=== PATIENT | female | born 1945 | race Caucasian/White ===

== ENCOUNTER 2016-12-26 12:41 | Outpatient (CLI) | payer MEDICARE, OTHER ==
[2016-06-05 20:46] VITALS: BP 136/79
[2016-12-26 13:03] LABS: BASOPHILS % 0.3 (0.0-1.5); EOSINOPHILS % 2.9 % (0.0-6.8); LYMPHOCYTES # 2.3 # k/uL (0.6-4.0); MEAN CORPUSCULAR HEMOGLOBIN 29.8 pg (28.0-34.0); MONOCYTES # 0.3 # k/uL (0.0-0.9); MONOCYTES % 4.9 % (0.0-11.0); NEUTROPHILS # 3.5 # k/uL (1.4-7.7)
[2016-12-26 13:22] LABS: eGFR (African) > 60; eGFR (Non-African) > 60
== END 2016-12-26 12:42 ==
LOC: LAB 12:41
PROVIDERS: ATTEND Family Medicine
DX: R07.9 Chest pain, unspecified (principal); I25.10 Atherosclerotic heart disease of native coronary artery without angina pectoris
CPT/HCPCS: 36415; 80053; 84484; 85025

== ENCOUNTER 2018-02-10 11:33 | Emergency (ER) | payer MEDICARE, OTHER ==
--- NOTE | 2018-02-10 12:09 | ED Physician Documentation ---
General Adult - HISTORIAN Historian: patient - HPI Stated Complaint: Chest pain Chief Complaint: General Adult Additional Information: Heart fluttering for two days. No pain. Had MD in the past with no pain, so came to the ER for an EKG. Had stents in 2014; no anticoagulants. 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 No other associated signs; no modifying factors. - ROS CONST: no problems - PAST HX Past History: other (see above) Allergies/Adverse Reactions: Allergies Allergy/AdvReac Type Severity Reaction Status Date / Time aspirin Allergy Severe Anaphylaxis Verified 02/10/18 11:54 cefuroxime axetil Allergy Severe Anaphylaxis Verified 02/10/18 11:54 [From Ceftin] naproxen [From Naprosyn] Allergy Severe Anaphylaxis Verified 02/10/18 11:54 Penicillins Allergy Severe Anaphylaxis Verified 02/10/18 11:54 tolmetin sodium Allergy Severe Anaphylaxis Verified 02/10/18 11:54 [From Tolectin] Home Medications: Ambulatory Orders Medication Instructions Recorded NK [NK] 02/10/18 - SOCIAL HX Smoking History: non-smoker - FAMILY HX Family History: No - VITAL SIGNS Vital Signs: Vital Signs Temp Pulse Resp BP Pulse Ox 97.8 F 72 16 150/63 95 02/10/18 11:33 02/10/18 11:48 02/10/18 11:33 02/10/18 11:33 02/10/18 11:33 - REVIEWED ASSESSMENTS Nursing Assessment Reviewed: Yes Vitals Reviewed: Yes Progress - Progress Progress: Patient Study Name: AUBREY ZAMARRIPA Date: Feb 10, 2018 12:26:55 PM CDT Modality Type: DX Gender: F Description: CHEST : 43 Institution: [facility] Physician: KE CLANCY - ER Chest, AP portable History: Irregular heart rate Findings: No infiltrate, effusion or pneumothorax is present. Heart size, mediastinum and pulmonary vascularity are normal. Impression: No active pulmonary disease. Electronically signed on Feb 10, 2018 12:40:15 PM CDT by: Javy Carrasquillo All labs reassuring including serial Troponin I's. Pt w/o pain in the ER. Appt with Dr. Escobar in 2 months. ED Results Lab/Radiology - Orders Orders: ED Orders Category Date Time Status Continuous EKG monitoring Q1H Care 02/10/18 11:[address] IV Lock 1T Care 02/10/18 11:48 Active CHEST 1VIEW [RAD] Stat Exams 02/10/18 Ordered CBC/PLATELET/DIFF Routine Lab 02/10/18 11:58 Received CMP Routine Lab 02/10/18 11:58 Received TROPONIN I (cTnI) Stat Lab 02/10/18 11:58 Received URINALYSIS Routine Lab 02/10/18 11:58 Received Oxygen Daily Oxygen 02/10/18 12:00 Ordered General Adult Physical Exam - PHYSICAL EXAM GENERAL APPEARANCE: no distress EENT: eye inspection normal, ENT inspection normal, pharynx normal (Mallampati 2 ) NECK: normal inspection RESPIRATORY: breath sounds normal CVS: reg rate & rhythm, heart sounds normal, no murmur ABDOMEN: normal bowel sounds, no distension, non-tender BACK: normal inspection, no CVA tenderness SKIN: warm/dry, normal color EXTREMITIES: normal range of motion (gait and stance), no evidence of injury NEURO: CN's nml as tested, motor nml, sensation nml, cognition normal Discharge Clincal Impression: Fluttering heart Referrals: Melia Oliveira MD [Primary Care Provider] - 2 Days Condition: Good Disposition: 01 HOME, SELF-CARE Decision to Admit: NO Decision Time: 14:50
[2018-02-10 12:15] LABS: BASOPHILS % 0.5 (0.0-1.5); MEAN CORPUSCULAR HEMOGLOBIN 30.3 pg (28.0-34.0); MEAN CORPUSCULAR VOLUME 92.8 fl (80.0-100.0); MONOCYTES % 6.4 % (0.0-11.0); NEUTROPHILS # 3.3 # k/uL (1.4-7.7)
[2018-02-10 12:19] LABS: eGFR (African) > 60; eGFR (Non-African) > 60
--- NOTE | 2018-02-10 12:44 | Diagnostic Imaging Report ---
[facility] [address] [facility].[address] [address] Report Submission Date: Feb 10, 2018 12:40:15 PM CDT Patient Study Name: AUBREY ZAMARRIPA Date: Feb 10, 2018 12:26:55 PM CDT Modality Type: DX Gender: F Description: CHEST : 43 Institution: [facility] Physician: KE CLANCY Chest, AP portable History: Irregular heart rate Findings: No infiltrate, effusion or pneumothorax is present. Heart size, mediastinum and pulmonary vascularity are normal. Impression: No active pulmonary disease. Electronically signed on Feb 10, 2018 12:40:15 PM CDT by: Javy LEONG
[2018-02-10 15:19] VITALS: BP 128/62
[2018-02-11 07:20] LABS: APPEARANCE,URINE CLEAR (CLEAR); COLOR,URINE YELLOW (YELLOW); OCCULT BLOOD,URINE NEGATIVE (NEGATIVE); PH URINE 7.5 (5.0 - 8.0); UROBILINOGEN URINE 0.2 Eu (0.2-1.0)
== END 2018-02-10 15:12 | disposition home or self-care (01) ==
LOC: ED 11:33 → SUPCPDRO 11:33 → ED 15:12
DX: R00.2 Palpitations (principal)
CPT/HCPCS: 71045; 80053; 81002; 84484; 85025; 99285; S1016

== ENCOUNTER 2018-02-14 15:41 | Outpatient (CLI) | payer MEDICARE, OTHER | END 2018-02-14 15:42 | LOC: LAB 15:41 | PROVIDERS: ATTEND Family Medicine | DX: I25.10 Atherosclerotic heart disease of native coronary artery without angina pectoris (principal) | CPT/HCPCS: 36415; 80061 ==

== ENCOUNTER 2019-06-20 07:30 | Emergency (ER) | payer MEDICARE, OTHER ==
--- NOTE | 2019-06-20 07:38 | ED Physician Documentation ---
General Adult - HISTORIAN Historian: patient - HPI Stated Complaint: "I might be having an allergic reaction " Chief Complaint: General Adult Onset: days ago (1 day ) Timing: still present, better (she is not sure ) Further Comments: yes (Lorna presents today with what she feels is a possible allergic reaction - she denies any new exposures or new foods. She has not tried any OTC meds and she has not taken her listed meds in a "while" (after discussion 3 days) . She does not "trust medications" . She keeps saying "this is all in my head maybe" SHe states she had a rash on her arms this am but she cannot see it now although she keeps saying "do you see the rash on my arms" rash doesnt itch or hurt. She denies any chest pain although she did have an KS a few years ago with no symptoms per her report.) - ROS CONST: no problems MS/SKIN/LYMPH: rash - PAST HX Past History: hypertension Immunizations: UTD Allergies/Adverse Reactions: Allergies Allergy/AdvReac Type Severity Reaction Status Date / Time aspirin Allergy Severe Anaphylaxis Verified 06/20/19 07:54 cefuroxime axetil Allergy Severe Anaphylaxis Verified 06/20/19 07:54 [From Ceftin] naproxen [From Naprosyn] Allergy Severe Anaphylaxis Verified 06/20/19 07:54 Penicillins Allergy Severe Anaphylaxis Verified 06/20/19 07:54 tolmetin sodium Allergy Severe Anaphylaxis Verified 06/20/19 07:54 [From Tolectin] Home Medications: Ambulatory Orders Medication Instructions Recorded NK 02/10/18 - SOCIAL HX Smoking History: non-smoker Alcohol Use: none Drug Use: none - FAMILY HX Family History: No - VITAL SIGNS Vital Signs: Vital Signs Temp Pulse Resp BP Pulse Ox 128/62 02/10/18 15:12 - REVIEWED ASSESSMENTS Nursing Assessment Reviewed: Yes Vitals Reviewed: Yes Progress - Progress Progress: 0840: resting quietly in room. HR on monitor is 80's. NO complaints DG 0910: discussed results with pt. She states we are treating her like she is crazy and she has a rash on her arms. The rash doesnt itch. She still denies any new exposures. She states she feels like she is having a reaction to something. She has no one who she can call to drive her home. "Just go your not listening to me anyway " DG 0923: she states she will call for a ride. and she feels that she needs something for an allergic reaction. She does have two small red vesicles on left forearm. DG 0946: resting quietly in bed. No further complaints DG 1015: states she is feeling great - she has a friend here for a ride. No further feeling of a rash DG ED Results Lab/Radiology - Radiology Radiology Impressions: Examination: 1V chest History: Evaluate lungs PALPITATIONS Comparison exam: None available for direct review. Findings: Single view of the chest demonstrates a normal cardiac and mediastinal silhouette. Aortic arch vascular calcifications. Lung stevens without focal infiltrate. No blunting of the costophrenic margins. Osseous structures are appropriate for age. Impression: No acute pulmonary process. Electronically signed on Jun 20, 2019 8:04:22 AM CDT by: Byron Burroughs General Adult Physical Exam - PHYSICAL EXAM GENERAL APPEARANCE: mild distress (very anxious) EENT: eye inspection normal, no signs of dehydration NECK: normal inspection RESPIRATORY: no resp distress, chest non-tender, breath sounds normal CVS: reg rate & rhythm ABDOMEN: soft, no distension SKIN: warm/dry, normal color, other (two red raised pinpoint vesicles on left forearm . NO redness or rash otherwise noted ) EXTREMITIES: non-tender, normal range of motion, no evidence of injury, no edema NEURO: oriented X3 Discharge Clincal Impression: Allergic reaction Qualifiers: Encounter type: initial encounter Qualified Code(s): T78.40XA - Allergy, unspecified, initial encounter Referrals: Arthur Thao MD [Primary Care Provider] - 2 Days Comments: 1. OTC Benadryl as directed as needed for rash 2. Continue meds as directed 3. Call PCP for follow up 4. Return to ER For any increasing concerns Condition: Stable Disposition: 01 HOME, SELF-CARE Decision to Admit: NO Date of Decison to Admit: 06/20/19 Decision Time: 10:09
[2019-06-20] MEDS: 0.9 % SODIUM CHLORIDE 1,000 ML IV ONE (07:48)
[2019-06-20] MEDS: ONDANSETRON HCL/PF 4 MG/ 2ML VIAL IVP ONE (07:48)
[2019-06-20 07:51] LABS: BASOPHILS % 0.7 % (0.0-1.5); NEUTROPHILS # 3.7 # k/uL (1.4-7.7)
[2019-06-20 07:58] LABS: eGFR (Non-African) > 60
--- NOTE | 2019-06-20 08:09 | Diagnostic Imaging Report ---
YUE SR [facility] [address] [facility]. [address] [place], [place]. [address] Report Submission Date: Jun 20, 2019 8:04:22 AM CDT Patient Study Name: AUBREY ZAMARRIPA Date: Jun 20, 2019 7:38:08 AM CDT Modality Type: DX Gender: F Description: CHEST 1VIEW : 43 Institution: [facility] Physician: YUE SR Examination: 1V chest History: Evaluate lungs PALPITATIONS Comparison exam: None available for direct review. Findings: Single view of the chest demonstrates a normal cardiac and mediastinal silhouette. Aortic arch vascular calcifications. Lung stevens without focal infiltrate. No blunting of the costophrenic margins. Osseous structures are appropriate for age. Impression: No acute pulmonary process. Electronically signed on Jun 20, 2019 8:04:22 AM CDT by: Byron LEONG
[2019-06-20] MEDS: diphenhydrAMINE HCL 25 MG TABLET PO ONE (09:28)
[2019-06-20] MEDS: methylPREDNISolone SOD SUCC 125 MG/2 ML VIAL IVP ONE (09:28)
[2019-06-20 11:16] VITALS: BP 137/53
== END 2019-06-20 10:16 | disposition home or self-care (01) ==
LOC: ED 07:30
DX: T78.40XA Allergy, unspecified, initial encounter (principal)
CPT/HCPCS: 71045; 80053; 84484; 85025; 93005; 96361; 96374; 99284; J2405; J2930; J7030; Q0163; S1016

== ENCOUNTER 2019-07-22 23:45 | Emergency (ER) | payer MEDICARE, OTHER | END 2019-07-23 00:45 | LOC: ED 23:45 | DX: F41.9 Anxiety disorder, unspecified (principal); R00.2 Palpitations | CPT/HCPCS: 93005; 99282 ==